=== PATIENT | male | born 1955 | race Caucasian/White ===

== ENCOUNTER → 2017-10-12 | Outpatient (CLI) | payer BC ==
--- NOTE | 2017-10-17 11:25 | VAS ---
HISTORY: Peripheral vascular disease Study: Bilateral lower extremity arterial Doppler evaluation, bilateral ABIs Comparison: None Technique: Multiple grayscale sonographic images were obtained. Color duplex Doppler evaluation was p erformed. Findings: On the right, flow was identified from the common femoral through the dorsalis pedis artery. Waveform s were triphasic or biphasic throughout. There are no velocity spikes to suggest a focal greater than 50% stenosis. KRISSY 1.2 which is normal. On the left, flow was identified from the common femoral thro ugh the dorsalis pedis artery. Waveforms were triphasic throughout. There are no significant velocity spikes to suggest a focal greater than 50% stenosis. KRISSY was 1.21 which is normal. IMPRESSION: No sonographic evidence for significant atherosclerotic obstructive disease in either lower extremity Normal ABIs bilaterally Reported By:
== END | disposition home or self-care (01) | DRG 307 ==
LOC: RAD 14:06
PROVIDERS: ATTEND Internal Medicine Cardiovascular Disease
DX: R01.1 Cardiac murmur, unspecified (principal); I73.9 Peripheral vascular disease, unspecified; I35.1 Nonrheumatic aortic (valve) insufficiency; I34.0 Nonrheumatic mitral (valve) insufficiency
CPT/HCPCS: 93306; 93923